=== PATIENT | female | born 1995 | race Caucasian/White ===

== ENCOUNTER 2025-06-17 20:11 | Emergency (ER) | payer MEDICAID ==
[~2025-06-17] VITALS: Ht 167.6 cm; Wt 90.0 kg
[2025-06-17 20:35] LABS: MEAN PLATELET VOLUME 9.2 FL (7.4-10.4); RED CELL DISTRIBUTION WIDTH 13.5 % (11.5-14.5)
--- NOTE | 2025-06-17 20:41 | Physician Documentation ---
History of Present Illness ~ General Stated Complaint: ABDOMINAL PAIN Time Seen by MD: 20:36 History of Present Illness Initial Comments Patient presents to the emergency room with abdominal pain headache. She is actively menstruating. Symptoms has been ongoing since today. Took some Tylenol 2 hours prior to arrival. He had nausea with associated vomiting and bowel movements and urination reported to be normal. Received 8 mg of Zofran EN route and continues to vomit. Ambulance was called as patient had gotten up to go to the bathroom and syncopized. She states she would not have the headache prior to syncope and is unsure if she struck her head. Medication Reconciliation Allergies: Coded Allergies: No Known Allergies (Unverified , 06/17/25) Review of Systems ROS All review of systems negative except as per HPI Physical Exam Physical Exam Physical Exam General: Patient is awake, alert, oriented x4 in mild distress Head: Normocephalic and atraumatic. Eyes: Conjunctival normal. EOMI. PERRL. ENT: Mucous membranes moist. Neck: Supple, trachea is midline. No meningismus Chest: Clear to auscultation bilaterally without rales, rhonchi, or wheezes. There is no accessory muscle use or retractions. Cardiac: RRR without murmurs, gallops, or rubs. Abd: Soft, nondistended, nontender, with normoactive bowel sounds. No guarding, rebound, or rigidity. Progress Results/Orders Results/Orders Orders - GUY DOMINGUEZ MD Urinalysis, Cult If Indicated (06/17/25 20:16) Hcg, Ur Ql (06/17/25 20:16) Saline Lock (06/17/25 20:16) Straight Cath For Urine Sample (06/17/25 20:16) Ct Head (06/17/25 21:14) Drug Screen, Urine (06/17/25 23:22) Completed Orders - GUY DOMINGUEZ MD Cbc/Diff (06/17/25 20:16) Lipase (06/17/25 20:16) CMP (06/17/25 20:16) Prochlorperazine Inj (Compazine Inj) (06/17/25 20:40) Diphenhydramine Inj (Benadryl Inj.) (06/17/25 20:40) Normal Saline 1000ml (0.9% Sodium Chlori (06/17/25 20:40) Ketorolac Trometh 15mg/Ml Vial (Toradol (06/17/25 20:40) Hs Troponin I W Calculations (06/17/25 20:57) Electrocardiogram (06/17/25 20:57) Ct Head (06/17/25 21:14) Medications Received in ER Medications (Trade) Dose Ordered Sig/Mer Route PRN Reason Start Time Stop Time Status Last Admin Dose Admin (Compazine inj) 10 mg ONCE ONCE IV 06/17/25 20:40 06/17/25 20:41 DC 06/17/25 20:54 10 MG (Benadryl inj.) 25 mg ONCE ONCE IV 06/17/25 20:40 06/17/25 20:41 DC 06/17/25 20:54 25 MG Sodium Chloride 1,000 ml @ 1,000 mls/hr ONCE ONCE IV 06/17/25 20:40 06/17/25 21:39 DC 06/17/25 20:53 1,000 MLS/HR (Toradol injection) 15 mg ONCE ONCE IV 06/17/25 20:40 06/17/25 20:41 DC 06/17/25 20:54 15 MG Vital Signs 06/17/25 06/17/25 06/17/25 06/17/25 20:42 20:48 20:54 22:31 Temp 98.3 Pulse 78 Resp 14 14 18 14 B/P (MAP) 113/70 Pulse Ox 99 Laboratory Tests Test 06/17/25 20:22 White Blood Count 5.6 Red Blood Count 4.22 Hemoglobin 12.7 Hematocrit 37.3 Mean Corpuscular Volume 88.5 Mean Corpuscular Hemoglobin 30.0 Mean Corpuscular Hemoglobin Concent 33.9 Red Cell Distribution Width 13.5 Platelet Count 208 Mean Platelet Volume 9.2 Neutrophils (%) (Auto) 66.1 Lymphocytes (%) (Auto) 24.7 Monocytes (%) (Auto) 6.1 Eosinophils (%) (Auto) 2.4 Basophils (%) (Auto) 0.7 Neutrophils # (Auto) 3.7 Lymphocytes # (Auto) 1.4 Monocytes # (Auto) 0.3 Eosinophils # (Auto) 0.1 Basophils # (Auto) 0.0 CBC Comment Sodium Level 143 Potassium Level 3.8 Chloride Level 107 Carbon Dioxide Level 26.3 Anion Gap 10 Blood Urea Nitrogen 13 Creatinine 0.50 Estimated GFR/1.73 m2 > 90 BUN/Creatinine Ratio 26.0 H Glucose Level 97 Calcium Level 8.8 Total Bilirubin 0.3 Aspartate Amino Transf (AST/SGOT) 15 Alanine Aminotransferase (ALT/SGPT) 46 Alkaline Phosphatase 79 Troponin I High Sensitivity < 4 L Troponin I High Sens Percent Delta Troponin I Hi Sens Absolute Change Total Protein 6.9 Albumin 3.6 Globulin 3.3 Albumin/Globulin Ratio 1.1 Lipase 38 Chemistry Comments Medical Decision Making Findings Patient presents to the emergency room with syncopal episode and nausea as per HPI. Differentials include but are not limited to vasovagal, cardiac arrhythmia, dehydration. Patient's symptoms have responded to treatment. EKG and troponin reassuring. She is considered low cardiovascular risk. Several attempts at asking patient to give us urine made however she went to the bathroom several times in the kept stating that she kept forgetting to give us urine and I am unsure if patient is being forthcoming. She does not complaint of any urinary symptoms. Patient's BUN creatinine ratio does suggest mild dehydration and given patient with pain and stood up to go to the bathroom I suspect she had a vagal episode. Departure Disposition: HOME / SELF CARE / HOMELESS Impression: Primary Impression: Vomiting Additional Impression: Vasovagal attack Condition: Stable Discharge Instructions: Nausea and Vomiting, Adult Referrals: NO PRIMARY CARE PROVIDER (PCP) Prescriptions Ondansetron 8mg ODT (Ondansetron Odt) 8 Mg Tab.rapdis 1 TAB PO Q6H for nausea/vomiting for 3 Days, #12 TAB 0 Refills Prov: GUY DOMINGUEZ MD 06/18/25 Education Educated: Patient Educated regarding: diagnosis, treatment, need for follow up Signature Scribe Signature: No scribe Attestation: The note accurately reflects work and decisions made by me.Guy Dominguez MD 06/18/25 00:10 GUY DOMINGUEZ MD Jun 17, 2025 20:41
[2025-06-17] MEDS: normal saline 1000ml 1,000 ML IV ONE (20:53)
[2025-06-17] MEDS: ketorolac trometh 15mg/ml vial 15 MG/ML ML IV ONE (20:54)
[2025-06-17 21:06] LABS: CREATININE 0.50 MG/DL (0.40-0.90); TOTAL CARBON DIOXIDE 26.3 MMOL/L (24-32); eCRCL 155 ML/MIN; eGFR > 90 ML/MIN
--- NOTE | 2025-06-17 21:23 | ELECTROCARDIOGRAPH REPORT ---
[facility] Test Date: 2025-06-17 Test Time: 21:21:25 Pat Name: YURIDIA LUKE Department: [facility] Patient ID: [facility]-[id number] Room: Gender: F Outbound Sales Agent: : [id number] Requested By: FRANCISCO LEMON Order Number: [id number] Reading MD: Measurements Intervals Pooler Rate: 62 P: 37 ME: 170 QRS: 32 QRSD: 90 T: 38 QT: 407 QTc: 414 Interpretive Statements Sinus arrhythmia Low voltage, precordial leads Please click the below link to view image of tracing.
--- NOTE | 2025-06-17 21:25 | RADIOLOGY REPORT ---
EXAM: CT CT HEAD INDICATION: fall, GONZALES TECHNIQUE: CT of the head without intravenous contrast. Radiation Dose : 1. Head: CT Dose: CTDI volume is 55 mGy. Dose-length product is 873 mGy*cm The dose indicators for CT are the volume Computed Tomography (CT) Dose Index (CTDIvol) and the Dose Length Product (DLP), and are measured in units of mGy and mGy-cm, respectively. These indicators are not patient dose, but values generated from the CT scanner acquisition factors. The report includes radiation exposure data for exposures received during this examination. COMPARISON: None FINDINGS: There is no evidence of acute intracranial hemorrhage, extra-axial collection, mass effect, midline s hift, herniation or hydrocephalus. The ventricles, sulci and cisterns are age appropriate. The chatman-white differentiation is intact. Patchy periventricular and subcortical white matter hypoattenuation is nonspecific but may be related to small vessel ischemic disease. The visualized paranasal sinuses and mastoid air cells are clear. The surrounding soft tissues and osseous structures are unremarkable. IMPRESSION: 1. No acute intracranial abnormality. Radiation optimization: All CT scans at this facility use at least one of these dose optimization tate hniques: automated exposure control mA and/or kV adjustment per patient size (includes targeted exam s where dose is matched to clinical indication) or iterative reconstruction.
[2025-06-18] MEDS ORDERED: ONDA-245 PO (00:10)
[2025-06-18 00:20] VITALS: BP 128/75; PULSE 77; RESP 15; TEMP 97.9; O2SAT 99
== END 2025-06-18 00:36 | disposition home or self-care (01) ==
LOC: ER 20:14
DX: R11.2 Nausea with vomiting, unspecified (principal); R55 Syncope and collapse; R51.9 Headache, unspecified
CPT/HCPCS: 36415; 70450; 80053; 83690; 84484; 85025; 93005; 96361; 96374; 96375; 99285; J0780; J1200; J1885; J7030